=== PATIENT | female | born 1985 | race African-American/Black ===

== ENCOUNTER 2017-04-16 13:15 | Emergency (ER) | payer OTHER ==
--- NOTE | ~2017-04-16 | CR230 ---
[facility] A Service of [facility] & [facility] RADIOLOGY TEXT RESULTS PATIENT: HERLINDA BRAGG LOCATION: CFTX : 81 UNIT #: [id number] AGE: [address]: Tete Wolf APRN SEX: F ORDER DR: [id number] [facility] [address] [place], [place] [address] [id number] E MR#: [id number] Acc #: [id number] NAME: HERLINDA BRAGG : 1985 SEX: F STUDY DATE/TIME: 04/16/2017 15:33 UNIT: [facility] ROOM: STUDY DESCRIPTION: CR Shoulder Min 2 View Rt Attending Physician: Tete Wolf A.P.R.N. Ordering Physician: Dom Cullen M.D. Primary Care Physician: No Primary Care Physician MEDICAL IMAGING REPORT This report is preliminary unless electronic signature is present EXAM Right shoulder, 3 views HISTORY Shoulder pain beginning today. No known injury. FINDINGS 3 views are submitted. The bony elements are intact and in normal alignment. No fractures, lytic or blastic lesions are seen. CONCLUSION Negative. Dictated by... Chaz Ramos M.D. THIS IS AN ELECTRONICALLY VERIFIED REPORT Chaz Ramos M.D. at 04/17/2017 7:10 AM DEISY/catie TD: 04/16/2017 16:52 JOB #: [id number] MEDICAL IMAGING REPORT Page 1 of 1 COPY
== END 2017-04-16 16:35 | disposition home or self-care (01) ==
LOC: CED 13:15 → CFTX 13:15
DX: M25.511 Pain in right shoulder (principal)
CPT/HCPCS: 73030; 99283